=== PATIENT | female | born 2000 | race Two or more races ===

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

== ENCOUNTER 2021-12-23 22:56 | Emergency (ER) | payer MEDICAID ==
[~2021-12-23] VITALS: Ht 165.1 cm; Wt 57.2 kg
[2021-12-23 23:52] VITALS: BP 137/86
[2021-12-24 00:10] LABS: Urine Bacteria NONE SEEN /hpf (None Seen); Urine Blood 1+ /uL (Negative); Urine Specific Gravity 1.006 (1.001-1.035); Urine WBC 5 /hpf (0 - 5)
[2021-12-24] MEDS ORDERED: IBUP800T26 PO (02:50)
[2021-12-24] MEDS ORDERED: TAM04C PO (02:50)
== END 2021-12-24 03:05 | disposition home or self-care (01) ==
LOC: ER 22:56
DX: N20.0 Calculus of kidney (principal); Z79.1 Long term (current) use of non-steroidal anti-inflammatories (NSAID); Z79.899 Other long term (current) drug therapy
CPT/HCPCS: 74176; 81001; 81025